=== PATIENT | male | born 1960 | race Caucasian/White ===

== ENCOUNTER 2020-04-03 07:06 | Emergency (ER) | payer BC, MEDICAID ==
[~2020-04-03] VITALS: Ht 177.8 cm; Wt 77.1 kg
[2020-04-03 07:26] VITALS: BP 134/86
[2020-04-03] MEDS ORDERED: KETOROLAC TROMETH 60MG/2ML VIAL IM ONE (07:30)
== END 2020-04-03 08:36 | disposition home or self-care (01) ==
LOC: EDBD 07:06 → ER 07:06
DX: M54.2 Cervicalgia (principal); Z76.0 Encounter for issue of repeat prescription
CPT/HCPCS: 96372; 99283; J1885

== ENCOUNTER 2022-01-13 19:23 | Emergency (ER) | payer MEDICAID ==
[~2022-01-13] VITALS: Ht 188 cm; Wt 68.0 kg
[2022-01-13 19:29] VITALS: BP 160/95
[2022-01-13] MEDS ORDERED: HYDROcodone-ACET 5/325MG TAB PO ONE (21:15)
[2022-01-13] MEDS ORDERED: HYDR-4902 PO (21:16)
== END 2022-01-13 22:13 | disposition home or self-care (01) ==
LOC: ER 19:23 → EDUNIT# 19:23 → EDBD 19:23 → ER 22:13
DX: S42.295A Other nondisplaced fracture of upper end of left humerus, initial encounter for closed fracture (principal); F17.210 Nicotine dependence, cigarettes, uncomplicated; F12.10 Cannabis abuse, uncomplicated; W18.09XA Striking against other object with subsequent fall, initial encounter; Y93.89 Activity, other specified; Y92.89 Other specified places as the place of occurrence of the external cause; Y99.8 Other external cause status
CPT/HCPCS: 29105; 73030

== ENCOUNTER 2025-05-22 18:39 | Emergency (ER) | payer OTHER, MEDICAID ==
[~2025-05-22] VITALS: Ht 180.3 cm; Wt 68.5 kg
[~2025-05-22 18:39] MED LIST: HYDR-4902 PO
[2025-05-22] MEDS: SODIUM CHLORIDE 0.9% 1,000 ML IVB ONE (19:15)
--- NOTE | 2025-05-22 19:52 | ED.PDOC ---
History of Present Illness HPI Comments 64 y/o [id number] M presents with c/c nonradiating, right sided abdominal pain. Patient is a poor historian. He endorses on having symptoms, intermittently, for several few months. No reported provoking factors. No recent travel, injuries, sick contact, or pertinent medical history. Denies on any nausea, vomiting, diarrhea, fever, chills, or further associated symptoms. Chief Complaint: Abdominal Pain Time Seen by MD: 19:30 Primary Care Provider: SIMON Reviewed Notes: Nurses Notes, Medications, Allergies Allergies: Coded Allergies: NO KNOWN ALLERGIES (Unverified , 03/29/14) Home Meds Active Scripts Ondansetron HCl (Ondansetron Hydrochloride) 8 Mg Tab, 8 MG PO Q6HP PRN, #30 TAB Prov:KLAUS GA MD 05/22/25 Gabapentin (Once-Daily) (Gabapentin) 300 Mg Tab, 300 MG PO Q8HP PRN, #30 TAB Prov:KLAUS GA MD 05/22/25 Hydrocodone-Acetaminophen (Hydrocodone Bitartrate/AC 5-325 mg) 1 Tab Tab, 1 TAB PO Q6HP PRN for 7 Days, #28 TAB Prov:ROXANA HENSON MD 01/13/22 Information Source: Patient Mode of Arrival: Ambulatory Past Medical History PAST MEDICAL HISTORY: Denies Family History Family History: No family hx of DM, No family hx of Heart edna Social History Smoker: Cigarettes Alcohol: Heavy Drugs: Marijuana Lives In: Home All Other Systems: Reviewed and Negative (Comprehensive systems review obtained and negative except for what is stated in the HPI.) Physical Exam General Appearance: No Apparent Distress, Normal HEENT: Normal ENT Inspection, Pharynx Normal, TMs Normal Neck: Full Range of Motion, Non-Tender, Normal, Normal Inspection Respiratory: Chest Non-Tender, Lungs Clear, No Accessory Muscle Use, No Respiratory Distress, Normal Breath Sounds Cardiovascular: No Edema, No JVD, No Murmur, No Gallop, Normal Peripheral Pulses, Regular Rate/Rhythm Breast Exam: Deferred Gastrointestinal: No Organomegaly, No Pulsatile Mass, Normal Bowel Sounds, RLQ (tenderness, mild), RUQ (tenderness, mild), Soft, Tenderness (mild tenderness to right upper and lower quadrants ) Genitalia: Deferred Pelvic: Deferred Rectal: Deferred Extremities: No calf tenderness, Normal capillary refill, Normal inspection, Normal range of motion, Non-tender, No pedal edema Musculoskeletal : Apperance: Normal Neurologic: Alert, 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 Was a procedure done?: No Differential Dx Considerations may include: gastritis, gastroenteritis, GERD, PUD, cholelithiasis, cholecystitis, nephrolithiasis, pyelonephritis, cystitis, PID, appendicitis, among others X-Ray, Labs, Meds, VS Vital Signs Date Time Temp Pulse Resp B/P (MAP) Pulse Ox O2 Delivery O2 Flow Rate FiO2 05/23/25 01:42 97.8 75 20 158/86 (110) 96 97.8 05/22/25 19:52 94 20 96 Room Air 05/22/25 19:52 98.2 94 20 163/88 (113) 96 98.2 05/22/25 18:40 97.9 71 19 169/70 100 97.9 Lab Test 05/22/25 19:52 Range/Units White Blood Count 12.0 H 4.4-10.8 10^3/uL Red Blood Count 5.24 4.5-5.90 10^6/uL Hemoglobin 18.3 H 13.5-17.5 g/dL Hematocrit 52.4 41.0-53.0 % Mean Corpuscular Volume 100.0 80.0-100.0 fL Mean Corpuscular Hemoglobin 34.9 H 28.0-32.0 pg Mean Corpuscular Hemoglobin Concent 34.9 32.0-36.0 g/dL Red Cell Distribution Width 14.4 H 11.8-14.3 % Platelet Count 374 140-450 10^3/uL Mean Platelet Volume 7.9 6.9-10.8 fL Neutrophils (%) (Auto) 87.0 H 37.0-80.0 % Lymphocytes (%) (Auto) 7.3 L 10.0-50.0 % Monocytes (%) (Auto) 5.5 0.0-12.0 % Eosinophils (%) (Auto) 0.0 0.0-7.0 % Basophils (%) (Auto) 0.2 0.0-2.0 % Neutrophils # (Auto) 10.5 H 1.6-8.6 10 ^3/uL Lymphocytes # (Auto) 0.9 0.4-5.4 10 ^3/uL Monocytes # (Auto) 0.7 0-1.3 10 ^3/uL Eosinophils # (Auto) 0 0-0.8 10 ^3/uL Basophils # (Auto) 0 0-0.2 10 ^3/uL Nucleated Red Blood Cells 0.0 % Sodium Level 133 L 136-145 mmol/L Potassium Level 4.2 3.5-5.1 mmol/L Chloride Level 99 98-107 mmol/L Carbon Dioxide Level 20 20-31 mmol/L Anion Gap 14 5-15 Blood Urea Nitrogen 5 L 9-23 mg/dL Creatinine 0.62 L 0.700-1.30 mg/dL Glomerular Filtration Rate Calc 106 >90 mL/min BUN/Creatinine Ratio 8.1 L 10.0-20.0 Serum Glucose 89 74-106 mg/dL Calcium Level 9.6 8.7-10.4 mg/dL Total Bilirubin 0.8 0.2-1.0 mg/dL Aspartate Amino Transferase (AST) 71 H 13-40 U/L Alanine Aminotransferase (ALT) 47 H 7-40 U/L Alkaline Phosphatase 115 46-116 U/L Total Protein 7.9 5.7-8.2 g/dL Albumin 4.7 3.2-4.8 g/dL Lipase 47 12-53 U/L Current Medications Medications (Trade) Dose Ordered Sig/Shabana Route Start Time Stop Time Status Last Admin Sodium Chloride 1,000 ml @ 1,000 mls/hr Q1H ONCE IVB 05/22/25 19:15 05/22/25 20:14 DC 05/22/25 19:15 Time of 1ST Reevaluation: 20:00 Reevaluation 1ST: Unchanged Patient Education/Counseling: Diagnosis, Treatment, Need For Follow Up Family Education/Counseling: No Family Present SEPSIS Sepsis Screen Date sepsis recognized/suspect: May 22, 2025 Time Sepsis recognized/suspect: 1839 Recent Procedure: No On Antibiotic Therapy: No Respiratory Rate >20: No Heart Rate >90: Yes Temp<36 C (96.8 F) or >38.3 C: No SBP <90 or MAP <65 mmHG: No New Acute Mental Status Change: No Is the patient on CPAP, BIPAP,: No Physician Orders Urinalysis (05/22/25 19:07) Ct Ab Pel With Iv Con Only (05/22/25 19:07) Vital Signs Date Time Temp Pulse Resp B/P (MAP) Pulse Ox O2 Delivery O2 Flow Rate FiO2 05/23/25 01:42 97.8 75 20 158/86 (110) 96 97.8 05/22/25 19:52 94 20 96 Room Air 05/22/25 19:52 98.2 94 20 163/88 (113) 96 98.2 05/22/25 18:40 97.9 71 19 169/70 100 97.9 Laboratory Tests Test 05/22/25 19:52 White Blood Count 12.0 10^3/uL (4.4-10.8) H Medications Medications Dose Ordered Sig/Shabana Route Start Time Stop Time Status Last Admin Dose Admin Sodium Chloride 1,000 ml @ 1,000 mls/hr Q1H ONCE IVB 05/22/25 19:15 05/22/25 20:14 DC 05/22/25 19:15 Departure 1 Departure Time of Disposition: 22:00 Impression: Primary Impression: Hiatal hernia Additional Impressions: Renal cyst, right Right sided abdominal pain Disposition: HOME / SELF CARE / HOMELESS Condition: Stable e-Prescriptions Ondansetron HCl (Ondansetron Hydrochloride) 8 Mg Tab 8 MG PO Q6HP PRN, #30 TAB Prov: KLAUS GA MD 05/22/25 Gabapentin (Once-Daily) (Gabapentin) 300 Mg Tab 300 MG PO Q8HP PRN, #30 TAB Prov: KLAUS GA MD 05/22/25 Discharged With: Self Critical Care Note Critical Care Time?: No Stability Stability form required: No Heart Score Heart Score: Heart Score Response (Comments) Value History N/A 0 EKG N/A 0 Age N/A 0 Risk Factors N/A 0 Troponin N/A 0 Total 0 I personally scribed for KLAUS GA MD ([email or web address]) on 05/22/25 at 19:52. El ectronically submitted by Joshua Multani [email or web address]). KLAUS GA MD May 22, 2025 19:52
[2025-05-22 20:32] LABS: Mean Corpuscular Volume 100.0 fL (80.0-100.0); Nucleated Red Blood Cells % 0.0 %
[2025-05-22 20:35] LABS: Albumin 4.7 g/dL (3.2-4.8); Alkaline Phosphatase 115 U/L (46-116); Anion Gap 14 (5-15); BUN/Creatinine Ratio 8.1 (10.0-20.0); Bilirubin, Total 0.8 mg/dL (0.2-1.0); Calcium 9.6 mg/dL (8.7-10.4); Chloride 99 mmol/L (98-107); Glucose 89 mg/dL (74-106); Lipase 47 U/L (12-53); Potassium 4.2 mmol/L (3.5-5.1); Total Protein 7.9 g/dL (5.7-8.2)
[2025-05-22 20:36] LABS: Hematocrit 52.4 % (41.0-53.0); Hemoglobin 18.3 g/dL (13.5-17.5); Mean Corpuscular Hemoglobin 34.9 pg (28.0-32.0)
[2025-05-22 20:41] LABS: Alanine Aminotransferase 47 U/L (7-40); Blood Urea Nitrogen 5 mg/dL (9-23); Carbon Dioxide 20 mmol/L (20-31); Sodium 133 mmol/L (136-145)
[2025-05-22] MEDS: IOHEXOL 300 MG/ML 100ML BOTTLE IJ ONE (21:08)
--- NOTE | 2025-05-22 22:43 | DVH ---
Exam: CT CT AB PEL WITH IV CON ONLY History: right sided abd pain Comparison Study: None TECHNIQUE: Multidetector CT of the abdomen was performed from lung bases to pubic symphysis. Imaging was performed without IV contrast. Axial, coronal and sagittal multiplanar reformats were obtained fr om the axial data set by the technologist. Radiation Dose Information: CT Dose: CTDI volume is 16.14 mGy. Dose-length product is 2.95 mGy*cm Omnipaque 300: 100 cc. FINDINGS: Evaluation of solid organs is limited due to lack of intravenous contrast use. Findings: Lung Bases: No acute or significant lung base finding. Normal heart size. No pleural or pericardial effusion. Liver: The liver is normal in size. No focal lesions. Gallbladder and Biliary Tree: Unremarkable Spleen: Unremarkable Pancreas: The pancreas is grossly normal in appearance. Adrenal Glands: Unremarkable Kidneys: Kidneys are grossly normal without calculi or hydronephrosis. 2 cm right renal cyst Bladder: Grossly unremarkable for degree of distention. Bowel: Hiatal hernia with findings . Gastric fundus and body of the stomach located in the hernia. Th ere is no severe gastric distention to suggest volvulus. Correlate clinically. Small bowel and colon are normal in caliber and distribution. The appendix is not visualized; however, no secondary findin gs of acute appendicitis identified. Ascites: Absent Lymphadenopathy: No mesenteric, retroperitoneal or periportal lymphadenopathy. Abdominal Wall and Mesentery: Unremarkable. Vasculature: The visualized abdominal aorta is normal in size and caliber. Evaluation of abdominal a nd pelvic vessels is limited due to lack of intravenous contrast. Pelvic Organs: Unremarkable Musculoskeletal: No aggressive focal bony lesions, acute fractures or dislocation. Soft tissues: Unremarkable IMPRESSION: 1. Hiatal hernia containing fundus and body of the stomach correlate clinically for possibility of ga stric volvulus. CT criteria is low suspicion for this entity. 2. Compression of T11 and T12. No prior studies for comparison. 3. 2 cm right renal cyst HS:Y Radiation optimization: All CT scans at this facility use at least one of these dose optimization marshal hniques: automated exposure control mA and/or kV adjustment per patient size (includes targeted exam s where dose is matched to clinical indication) or iterative reconstruction.
[2025-05-22] MEDS ORDERED: ONDA-180 PO (22:55)
[2025-05-22] MEDS ORDERED: GABA300T4 PO (22:55)
[2025-05-23 01:42] VITALS: BP 158/86; PULSE 75; RESP 20; TEMP 97.8; O2SAT 96
== END 2025-05-23 01:46 | disposition home or self-care (01) ==
LOC: ER 18:39
DX: K44.9 Diaphragmatic hernia without obstruction or gangrene (principal); N28.1 Cyst of kidney, acquired; F17.210 Nicotine dependence, cigarettes, uncomplicated
CPT/HCPCS: 36415; 74177; 80053; 83690; 85025; 96360; 99285; J7030; Q9967